=== PATIENT | female | born 2000 | race Caucasian/White ===

== ENCOUNTER 2020-01-20 11:24 | Day surgery (SDC) | payer MEDICAID, SELFPAY ==
[2020-01-19 13:13] VITALS: BMI 33.6
[2020-01-20] VITALS (7 sets, daily range): BP systolic 109–139; BP diastolic 70–89; PULSE 43–70; RESP 18; TEMP 36.1–36.7; O2SAT 97–100
[2020-01-20 12:10] LABS: OR HCG Qualitative Urine Negative (Negative)
[2020-01-20] MEDS: sodium chloride 0.9% 1,000 ML 100 ML IV (12:15)
[2020-01-20 12:22] LABS: Add Urine Microscopic? NO
--- NOTE | 2020-01-20 12:27 | ANES.PREANE2 ---
Pre-Anesthetic Assessment Pre-Anesthetic Assessment: Height/Weight: Height 1.57 m Weight 83.461 kg Temp Pulse Resp BP Pulse Ox 98.0 F 70 18 135/76 98 01/20/20 11:54 01/20/20 11:54 01/20/20 11:54 01/20/20 11:54 01/20/20 11:54 Preop Diagnosis: Desire permanent sterilization Proposed Procedure: Operation Date: 01/20/20 12:45 Proposed Procedures p Lap Fulg,Removal of Tubes Sterilization 76811 Z30.2(Not Applicable) - Vicente Wilkinson MD s Laparoscopic Salpingectomy(Not Applicable) - Vicente Wilkinson MD Last intake: Intake Last Liquid Date 01/19/20 Last Liquid Time 20:00 Last Solid Date 01/19/20 Last Solid Time 20:00 Social: Social History: No alcohol and No tobacco Exam: Pre-Anes Outpt Exam: alert, oriented x 3, clear to auscultation bilaterally and regular rate & rhythm Airway: Submandibular: WNL Cervical ROM: WNL MP: 2 Dentition: Other (teeth ok) History/ROS: No significant history except as noted Pulmonary: Pulmonary: None reported CV/HEM: CV/HEM: None reported : : None reported Hepatic: Hepatic: None reported GI: GI: None reported Metabolic: Metabolic: None reported Musc/skel: Musc/skel: None reported Neuropsych: Neuropsych: None reported Anesthetic Plan: ASA status: 1 Anesthesia: Anesthesia Evaluation and General Risk of > 500 ml blood loss (7ml/kg in children): No Meds/Allergies Current Medications: Current Medications Generic Name Dose Route Start Last Admin Trade Name Brandonq PRN Reason Stop Dose Admin Sodium Chloride 1,000 mls @ 100 m ls/hr 01/20/20 09:15 01/20/20 12:15 Sodium Chloride 0.9% IV 01/21/20 09:14 100 mls/hr .Q10H ROM Administration PFSH Anesthesia PFSH: Family History Denies family history of Diabetes Clotting disorder Hyperlipidemia Anesthesia complication Bleeding disorder Hypertension Stroke Social History Smoking and tobacco status: never smoked Alcohol intake: never Data Anesthesia Other Labs: Laboratory Results - last 48 hr 01/20/20 11:43 Urine HCG, Qual Negative Cardiac Studies: No Data to Display
[2020-01-20 12:30] LABS: Bilirubin Urine Neg (NEGATIVE); Blood Urine Neg (Negative); Glucose Urine UA Norm (Normal); Ketones Urine Negative (Negative); Leukocyte Esterase Urine Negative (Negative); Nitrate Urine Negative (Negative); Protein Urine Neg (Negative); Specific Gravity, Urine 1.015 (1.005-1.030); Urine Appearance Clear (CLEAR); Urine Color Yellow (Yellow); Urobilinogen Urine Norm (Negative); pH Urine 5 (5-7)
[2020-01-20 12:37] LABS: Basophils % 0.7 %; Eosinophils # 0.1 10^3/uL (0.0-0.8); Eosinophils % 1.6 %; Hematocrit 38.6 % (37.0-47.0); Hemoglobin 11.6 g/dL (11.5-15.3); Lymphocytes # 1.6 10^3/uL (0.8-4.8); Lymphocytes % 27.8 %; Mean Corpuscular HGB Conc 30.1 g/dL (30.0-36.0); Mean Corpuscular Hemoglobin 23.8 pg (28.0-34.0); Mean Corpuscular Volume 79.1 fL (81-99); Mean Platelet Volume 9.5 fL (7.4-10.4); Monocytes # 0.5 10^3/uL (0.2-0.9); Monocytes % 7.9 %; Neutrophils # 3.6 10^3/uL (1.8-7.7); Neutrophils % 61.8 %; Nucleated Red Blood Cells % 0 %; Platelet Count 361 10^3/cmm (130-400); Red Blood Count 4.88 10^6/uL (4.1-5.3); Red Cell Distribution Width 13.7 % (12.1-15.1); White Blood Count 5.8 10^3/uL (4.0-10.0)
[2020-01-20 12:48] LABS: Anion Gap 15.3 (5-19); Blood Urea Nitrogen 17 mg/dL (6-20); Calcium 9.4 mg/dL (8.5-10.5); Carbon Dioxide 23 mmol/L (22-29); Chloride 105 mmol/L (98-107); Glomerular Filtration Rate 90.5 mL/min (90-130); Glucose 93 mg/dL (65-115); Osmolality Calculated 284 mOsm/kg (285-295); Potassium 4.3 mmol/L (3.5-5.1); Sodium 139 mmol/L (136-145)
--- NOTE | 2020-01-20 13:44 | W.PM.OPSUD ---
Surgery/Procedure H&P Update DATE OF PROCEDURE: January 20, 2020 DATE H&P PERFORMED: 01/19/20 H&P UPDATE INFORMATION: I have reviewed H&P completed within last 30 days, I have examined patient prior to procedure and No changes to prior documentation PREOP DIAGNOSIS: Desire permanent sterilization PLANNED PROCEDURE: Operation Date: 01/20/20 12:45 Proposed Procedures p Lap Fulg,Removal of Tubes Sterilization 22780 Z30.2(Not Applicable) - Vicente Wilkinson MD s Laparoscopic Salpingectomy(Not Applicable) - Vicente Wilkinson MD
--- NOTE | 2020-01-20 14:57 | PM.OP ---
Operative Report Date of procedure: January 20, 2020 Pre-op Diagnosis: Desire permanent sterilization Post-op diagnosis: same Procedure Done: laparoscopic bilateral fulguration salpingectomy Specimens removed/disposition: left and right fallopian tube Surgeon: Vicente Wilkinson Anesthesia: General Estimated blood loss (mL): 10 IV fluids (mL): 900 Urine output (mL): 200 Complications: none Findings: normal uterus with fallopian tubes and ovaries Condition: stable Disposition: PACU Brief History: 19-year-old desire permanent sterilization Procedure: After informed consent, the patient was taken to the operating room where general anesthesia was administered. She was placed in the dorsal lithotomy position and prepped and draped in sterile fashion. Pre-Procedure Time-Out verifying the correct patient identity, correct procedure verified with consent, correct site and side, correct patient position, availability of correct implants and any special equipment or requirements was performed and acknowledge by the OR team. The patient was examined under anesthesia and found to have a normal uterus with normal adnexa. A weighted speculum was placed in the vagina, and the anterior lip of cervix was grasped with the single toothed tenaculum. A uterine manipulator was advanced into the endocervical canal and uterus. The tenaculum was removed after uterine manipulator was secured. The speculum was removed from the vagina. An intraumbilical incision was made with a scalpel. While tenting up on the abdomen, a Verres needle was admitted into the intra-abdominal cavity. A saline drop test was performed and noted to be within normal limits. Pneumoperitoneum was attained with 4 liters of carbon dioxide. The Verres needle was removed. A 5 mm Opitc view trocar and sleeve were admitted into the abdomen and laparoscopic confirmation of location was achieved. A second incision was made 3 cm above the symphysis pubis, and a 5 mm trocar sleeves were admitted into the abdomen under direct laparoscopic visualization without complication. A survey revealed normal abdominal anatomy with the exception of string adhesion to the right lower anterior abdominal wall. A 5 mm blunt probe was advanced through the second trocar sleeve, and light manipulation of ovaries and uterus to assess the posterior aspects was performed. The pelvic survey shows normal uterus, left and right adnexa. The left ovary was noted with a follicular cyst. The string adhesion was fulgurated and transected with good hemostasis with the Ligasure. The patient was placed into Trendelenburg position. The fallopian tubes were inspected bilaterally and the fimbriated ends of the fallopian tubes were visualized bilaterally. Attention was then directed to the right side. The fallopian tube and mesosalpinx were grasped and the underlying mesosalpinx was cauterized and cut using the Ligasure device. Serial cauterization and cutting was used to separate the fallopian tube from the underlying mesosalpinx until it could be amputated cutting it approximated 2 cm from the cornua. Attention was then turned to the contralateral fallopian tube, which was removed in similar fashion. Both specimens were removed through the trocar and sent to pathology. The instruments were removed. The suprapubic trocar port was removed under direct visualization insuring good hemostasis. The carbon dioxide was allowed to escape from the abdomen. The intraumbilical trocar sleeve was withdrawn under visualization with laparoscope in the sleeve to insure hemostasis. The skin incisions were closed with 3-O Monocryl subcuticular stich and xeferm adhesive. The instruments were removed from the vagina, and excellent hemostasis was noted. The patient tolerated the procedure well, and sponge, lap and needle count were correct times two. The patient was taken to the recovery room in good condition.
--- NOTE | 2020-01-20 15:13 | SUR.PHASEI ---
PT AWAKE ALERT , DENIES PAIN VSS EXOFIN X 2 SITES TO ABD, ABD SOFT
== END 2020-01-20 16:05 | disposition home or self-care (01) ==
PROVIDERS: Anesthesiology; Visit Provider Obstetrics & Gynecology
PROC: (CPT 58661; principal; 2020-01-20 12:45)
DX: Z30.2 Encounter for sterilization (principal)
CPT/HCPCS: 58670; 12345; 36415; 80048; 81003; 81025; 84703; 85025; 86850; 86900; 88302; J0690; J1100; J1885; J2405; J2704; J2710; J3010; J3490; J7030